=== PATIENT | male | born 1975 | race African-American/Black ===

== ENCOUNTER 2016-06-11 14:32 | Emergency (ER) | payer OTHER ==
[~2016-06-11] VITALS: Ht 172.7 cm; Wt 90.0 kg
[~2016-06-11 14:32] MED LIST: ATOR80TA41 PO; CLOP75 PO; ECOT81TA2 PO
[2016-06-11 14:34] VITALS: BP 160/98; PULSE 84; RESP 20; TEMP 99; O2SAT 100
--- NOTE | 2016-06-11 14:47 | PD ---
Physical Exam Time Seen by Provider: 14:45 Narrative 41yo male with painful lump to L testicle area x2 day. Denies dysuria, hematuria, fever, vomiting, penile discharge, testicular edema. Unknown exposure to STD. VSS Seen in triage, awaiting bed placement. Data Data Last Documented VS Vital Signs Date Time Temp Pulse Resp B/P Pulse Ox O2 Delivery O2 Flow Rate FiO2 06/11/16 14:34 99.0 84 20 160/98 100 Room Air MDM Supervised Visit with NORAH: Carolyn Sandoval Jun 11, 2016 14:47
--- NOTE | 2016-06-11 15:28 | PD ---
HPI . testicular mass x 2 days Chief Complaint: Skin Problem Time Seen by Provider: 15:28 Travel History International Travel<30 days: No Contact w/Intl Traveler<30days: No Traveled to known affect area: No History of Present Illness HPI 41 yr old male with hx of CVA here with c/o testicular swelling x 2 days. He says the area is painful. He denies any drainage from the area. He denies any trauma. The area is tender to touch. It is irregularly shaped. It is not warm , erythematous, and feels solid. He has patient's assistance but has not used it. He denies any fever or chills. PFSH Past Medical History Blood Disorders: No Cancer: No Cardiovascular Problems: No Cerebrovascular Accident: Yes Diminished Hearing: No Endocrine: No Gastrointestinal Disorders: No Genitourinary: No Immune Disorder: No Implanted Vascular Access Dvce: Yes Musculoskeletal: No Neurologic: Yes Psychiatric: No Reproductive: No Respiratory: No Immunizations Current: Yes Tetanus Vaccination: > 5 Years Influenza Vaccination: Yes Past Surgical History Body Medical Devices: JASS IN [employer] Other Surgery: Yes (LEFT ANKLE TITANIUM PLATE) Social History Alcohol Use: Yes (OCC USE) Tobacco Use: No (quit) Substance Use: No Allergies-Medications (Allergen,Severity, Reaction): Coded Allergies: No Known Allergies (Verified , 06/11/16) Reported Meds & Prescriptions Reported Meds & Active Scripts Active No Active Prescriptions or Reported Medications Review of Systems General / Constitutional: No: Fever Eyes: No: Visual changes HENT: No: Headaches Cardiovascular: No: Chest Pain or Discomfort Respiratory: No: Shortness of Breath Gastrointestinal: No: Abdominal Pain Genitourinary: Positive: Other (testicular swellling), No: Dysuria Musculoskeletal: No: Pain Skin: No Rash Neurologic: No: Weakness Psychiatric: No: Depression Endocrine: No: Polydipsia Hematologic/Lymphatic: No: Easy Bruising Physical Exam Narrative GENERAL: AAO x 3, no acute distress, Well-nourished, well-developed patient. SKIN: Warm and dry. No visible rashes or bruising. HEAD: Normocephalic and atraumatic. EYES: No scleral icterus. No injection or drainage. ENT: No nasal drainage noted. Mucous membranes pink. Airway patent. NECK: Supple, trachea midline. No JVD. CARDIOVASCULAR: Regular rate and rhythm without murmurs, gallops, or rubs. RESPIRATORY: Breath sounds equal bilaterally. No accessory muscle use. No rhonchi or rales. GASTROINTESTINAL: Abdomen soft, non-tender, nondistended. EXTREMITIES: No cyanosis or edema. GENITAL: [employer] DENISE student present, mass is quarter sized, firm, somewhat flattened and irregularly shaped. Tender to touch.No erythema, edema or warmth. No drainage. No visible head formation. BACK: Nontender without obvious deformity. No CVA tenderness. PSYCH: AAO x 3, normal affect. Data Data Last Documented VS Vital Signs Date Time Temp Pulse Resp B/P Pulse Ox O2 Delivery O2 Flow Rate FiO2 06/11/16 14:34 99.0 84 20 160/98 100 Room Air MDM Medical Decision Making Medical Screen Exam Complete: Yes Emergency Medical Condition: No Medical Record Reviewed: Yes Differential Diagnosis hydrocele, varicocele, testicular mass/cancer, early abscess formation Narrative Course 41 yr old male with hx of CVA here with c/o testicular swelling x 2 days. He says the area is painful. He denies any drainage from the area. He denies any trauma. The area is tender to touch. It is irregularly shaped. It is not warm , erythematous, and feels solid. He has patient's assistance but has not used it. He denies any fever or chills. I personally called the community clinic and verified his PA. It is active. He was taken over by a financial counselor. A medical screening exam was performed: At the time of evaluation the presenting medical condition was determined not to be of an emergent nature. The patient was given the option of receiving additional care, but declined. Patient was given options for additional community resources from which to obtain care. The Patient Has Been advised to seek medical attention for their presenting complaint. The patient has been advised to return to the ER at any time if an emergent condition develops. Diagnosis Primary Impression: Encounter for medical screening examination Scripts No Active Prescriptions or Reported Meds Condition: Mandy Louis Jun 11, 2016 15:28
== END 2016-06-11 16:07 | disposition left against medical advice (07) ==
LOC: NEPK 14:32
DX: N50.812 Left testicular pain (principal)
CPT/HCPCS: 99281

== ENCOUNTER 2016-06-12 13:03 | Emergency (ER) | payer OTHER ==
[~2016-06-12] VITALS: Ht 172.7 cm; Wt 89.0 kg
[2016-06-12 13:05] VITALS: BP 159/97; PULSE 70; RESP 20; TEMP 98.5; O2SAT 100
--- NOTE | 2016-06-12 13:23 | PD ---
Physical Exam Date Seen by Provider: Jun 12, 2016 Time Seen by Provider: 13:21 Narrative 41 year old male presents to the emergency department for evaluation of a lump to his scrotum. Patient states he was here yesterday and it was deemed not emergent and he was referred to the community clinic. He has an ultrasound ordered, but has not yet had it done. Patient states lump is painful. Vital signs reviewed. Patient awaiting bed placement. Data Data Last Documented VS Vital Signs Date Time Temp Pulse Resp B/P Pulse Ox O2 Delivery O2 Flow Rate FiO2 06/12/16 13:05 98.5 70 20 159/97 100 Room Air MDM Supervised Visit with NORAH: No Scripts No Active Prescriptions or Reported Meds Hien Petersen Jun 12, 2016 13:23
--- NOTE | 2016-06-12 13:40 | PD ---
HPI . testicular swelling Chief Complaint: Skin Problem Time Seen by Provider: 13:39 Travel History International Travel<30 days: No Contact w/Intl Traveler<30days: No Traveled to known affect area: No History of Present Illness HPI 41-year-old male here with complaints of testicular swelling. Patient was seen in the emergency department yesterday and sent to the [facility]. He was seen by the provider there and labs and ultrasound were ordered. Patient tells me he went to go get his ultrasound done and they were closed due to it being a holiday. He decided to come into the emergency department to have his ultrasound done. His symptoms are unchanged from yesterday he has no other complaints. He denies any fever or chills. He is accompanied by his girlfriend and his grandmother. PFSH Past Medical History Blood Disorders: No Cancer: No Cardiovascular Problems: No Cerebrovascular Accident: Yes (X2) Diminished Hearing: No Endocrine: No Gastrointestinal Disorders: No Genitourinary: No Immune Disorder: No Implanted Vascular Access Dvce: Yes Musculoskeletal: No Neurologic: Yes Psychiatric: No Reproductive: No Respiratory: No Immunizations Current: Yes Past Surgical History Body Medical Devices: [employer]ASS [employer] Other Surgery: Yes (LEFT ANKLE TITANIUM PLATE) Social History Alcohol Use: Yes (OCC USE) Tobacco Use: No (quit) Substance Use: No Allergies-Medications (Allergen,Severity, Reaction): Coded Allergies: No Known Allergies (Verified , 06/12/16) Reported Meds & Prescriptions Reported Meds & Active Scripts Active No Active Prescriptions or Reported Medications Review of Systems General / Constitutional: No: Fever Eyes: No: Visual changes HENT: No: Headaches Cardiovascular: No: Chest Pain or Discomfort Respiratory: No: Shortness of Breath Gastrointestinal: No: Abdominal Pain Genitourinary: Positive: Other (testicular lump), No: Dysuria Musculoskeletal: No: Pain Skin: No Rash Neurologic: No: Weakness Psychiatric: No: Depression Endocrine: No: Polydipsia Hematologic/Lymphatic: No: Easy Bruising Physical Exam Narrative GENERAL: AAO x 3, no acute distress, Well-nourished, well-developed patient. SKIN: Warm and dry. No visible rashes or bruising. testicular lump on left side , still irregularly shaped and somewhat flattened, no erythema, edema, or ecchymosis. no temperature variation. tender to touch HEAD: Normocephalic and atraumatic. EYES: No scleral icterus. No injection or drainage. ENT: No nasal drainage noted. Mucous membranes pink. Airway patent. NECK: Supple, trachea midline. No JVD. CARDIOVASCULAR: Regular rate and rhythm without murmurs, gallops, or rubs. RESPIRATORY: Breath sounds equal bilaterally. No accessory muscle use. No rhonchi or rales. GASTROINTESTINAL: Abdomen soft, non-tender, nondistended. EXTREMITIES: No cyanosis or edema. BACK: Nontender without obvious deformity. No CVA tenderness. PSYCH: AAO x 3, normal affect. Data Data Last Documented VS Vital Signs Date Time Temp Pulse Resp B/P Pulse Ox O2 Delivery O2 Flow Rate FiO2 06/12/16 13:05 98.5 70 20 159/97 100 Room Air MDM Medical Decision Making Medical Screen Exam Complete: Yes Emergency Medical Condition: Yes Medical Record Reviewed: Yes Differential Diagnosis testicular mass, hydrocele, varicocele, abscess Narrative Course 41-year-old male here with complaints of testicular swelling. Patient was seen in the emergency department yesterday and sent to the community clinic. He was seen by the provider there and labs and ultrasound were ordered. Patient tells me he went to go get his ultrasound done and they were closed due to it being a holiday. He decided to come into the emergency department to have his ultrasound done. His symptoms are unchanged from yesterday he has no other complaints. He denies any fever or chills. He is accompanied by his girlfriend and his grandmother. A medical screening exam was performed: At the time of evaluation the presenting medical condition was determined not to be of an emergent nature. The patient was given the option of receiving additional care, but declined. Patient was given options for additional community resources from which to obtain care. The Patient Has Been advised to seek medical attention for their presenting complaint. The patient has been advised to return to the ER at any time if an emergent condition develops. Diagnosis Primary Impression: Encounter for medical screening examination Scripts No Active Prescriptions or Reported Meds Condition: Stable Mandy Smith Jun 12, 2016 13:40
== END 2016-06-12 13:51 | disposition left against medical advice (07) ==
LOC: NEPK 13:03
DX: N50.89 Other specified disorders of the male genital organs (principal)
CPT/HCPCS: 99281